=== PATIENT | female | born 1940 | race African-American/Black ===

== ENCOUNTER 2016-09-06 13:43 | Emergency (ER) | payer MEDICARE, OTHER ==
[2016-09-06 14:25] LABS: BASOPHIL 0.1 % (0-2); EOSINOPHIL 0.5 % (0-7); HCT 39.7 % (37.0-47.0); HGB 12.3 g/dl (12.5-16.0); LYMPHOCYTE 2.5 % (15-48); MCH 30.2 pg (25.0-31.0); MCV 97.5 fL (78.0-100.0); MONOCYTE 3.7 % (0-12); MPV 10.8 fL (6.0-9.5); NEUTROPHIL 93.2 % (41-80); PLT 265 K/uL (150-400); RBC 4.07 M/uL (4.20-5.40); RDW 18.5 % (11.5-14.0); WBC 13.3 K/uL (4.0-10.5)
[2016-09-06 14:55] LABS: ALBUMIN 4.5 g/dL (3.4-4.8); BILIRUBIN - TOTAL 0.4 mg/dL (0.1-1.0); GLOBULIN (CALCULATION) 3.8 g/dL (2.2-4.2); POTASSIUM 5.3 mmol/L (3.5-5.1); TOTAL PROTEIN 8.3 g/dL (6.4-8.3)
[2016-09-06 14:56] LABS: CREATININE 8.3 mg/dL (0.5-1.0)
== END 2016-09-06 17:41 | disposition home or self-care (01) ==
LOC: FER 13:43
PROVIDERS: Emergency Medicine
DX: E11.22 Type 2 diabetes mellitus with diabetic chronic kidney disease (principal); N18.6 End stage renal disease; R50.9 Fever, unspecified; Z79.01 Long term (current) use of anticoagulants; Z79.84 Long term (current) use of oral hypoglycemic drugs; Z79.4 Long term (current) use of insulin; Z79.899 Other long term (current) drug therapy; Z86.718 Personal history of other venous thrombosis and embolism
CPT/HCPCS: 36415; 36600; 71010; 80053; 82803; 85025; 86403; 87040; 87077; 87186; 87804; 87899; 93005; J2405